=== PATIENT | female | born 1985 | race Caucasian/White ===

== ENCOUNTER 2017-02-07 15:29 | Inpatient (IN) | payer OTHER ==
--- NOTE | ~2017-02-07 | PN ---
Unit #: [id number] #: [id number] Patient: DARRYL GARCIA [id number] [facility] [address] [place] [address] [id number] MR#: [id number] NAME: DARRYL GARCIA. ROOM: [facility] Age: 31 Sex: F Admission Date: 02/07/2017 : 1985 Attending Physician: Anjelica Peck M.D. Admitting Physician: Anjelica Peck M.D. Primary Care Physician: Primary Care Physician Margarita RANGEL PROGRESS NOTES DATE 02/11/2017 DISCUSSION Ms. Garcia is a 31-year-old white female with substance abuse and mood disorder who was seen today and chart was reviewed and case was discussed with the staff. She has been anxious, withdrawn and rather seclusive to herself and has been showing impulsivity and irritability with poor insight and judgement, poor motivation towards treatment. MENTAL STATUS EXAMINATION Young white female who was casually dressed with fair personal hygiene, appears to be in no acute distress or discomfort. She was awake and alert with impaired attention and concentration. Her mood was anxious with congruent affect. Her speech was slow (2) . Her thought processes were disorganized with some looseness of associations and flight of ideas. Her insight and judgement remains significantly impaired. TREATMENT PLAN 1. We will continue her on her current medications and treatment protocol. We will monitor her response to the medication. We will encourage her to show a better compliance to treatment and recommendation. 2. We will continue to follow up. Dictated by... Naheed Fernandez/zoila TD: 02/12/2017 03:53 JOB #: [id number] Unit #: [id number] #: [id number] Patient: DARRYL GARCIA PROGRESS NOTES Page 1 of 1 X Anjelica Peck MD PROGRESS NOTE
--- NOTE | ~2017-02-07 | DS ---
Unit #: [id number] #: [id number] Patient: [facility] [id number] [facility] [address] [place] [address] [id number] MR#: [id number] NAME: DARRYL GARCIA. ROOM: [facility] Age: 31 Sex: F Admission Date: 02/07/2017 : 1985 Discharge Date: 02/13/2017 Attending Physician: Anjelica Peck M.D. Primary Care Physician: Primary Care Physician No DISCHARGE SUMMARY IDENTIFYING DATA Ms. Garcia is a 31-year-old single white female, who is a resident of [place], [place], and was self-referred to the hospital on a voluntary basis. DISCHARGE DIAGNOSES Psychiatric: Opioid dependence, moderate and acute withdrawals; opioid-induced mood disorder. Medical: None. Stressors: Moderate psychosocial stressors. HISTORY OF PRESENT ILLNESS Please see initial psychiatric evaluation for details. PAST PSYCHIATRIC HISTORY Please see initial psychiatric evaluation for details. PAST MEDICAL HISTORY Please see initial psychiatric evaluation for details. HOSPITAL COURSE The patient was admitted to the adult chemical dependency unit at [facility] and was oriented to the hospital. Routine p.r.n. medications were initiated, and was seemed to be doing fairly well. She was taking the medications regularly, was tolerating them fairly well and was able to show a decent therapeutic response and was willing to continue treatment on an outpatient basis. DISCHARGE MEDICATIONS None. DISCHARGE CONDITION Stable. PROGNOSIS Fair. Dictated by... Naheed Fernandez/philipl TD: 02/13/2017 06:50 Unit #: [id number] #: [id number] Patient: DARRYL GARCIA JOB #: [id number] DISCHARGE SUMMARY Page 1 of 1 X Anjelica Peck MD X DISCHARGE SUMMARY
--- NOTE | ~2017-02-07 | PA ---
Unit #: [id number] #: [id number] Patient: DARRYL GARCIA [id number] [facility] [address] [place] [address] [id number] I MR#: [id number] NAME: DARRYL GARCIA ROOM: P202 Age: 31 Sex: F Admission Date: 02/07/2017 : 1985 Date of Assessment: 02/08/2017 Attending Physician: Anjelica Peck M.D. Admitting Physician: Anjelica Peck M.D. Primary Care Physician: Primary Care Physician No PSYCHIATRIC ASSESSMENT DATE OF SERVICE 02/08/2017. IDENTIFYING DATA Ms. Garcia is a 31-year-old, single, white female, who is a resident of [place], [place], and was self-referred to the hospital on a voluntary basis. CHIEF COMPLAINT "I need medical detox." HISTORY OF PRESENT ILLNESS Ms. Garcia is a 31-year-old white female, who was brought to the hospital stating that she needs detox and "I've also been feeling really low lately." She reports that she is homeless and has been staying with her brother, but his landlord found out and made her leave and the patient has not seen her children and she has lost friends over the last few years and reports increasing depression, anxiety, multiple psychosocial stressors, having no income, financial stressors and describing herself to be homeless. Reports that she has had significant consequences because of her addiction and reports increasing depression with feelings of hopelessness and helplessness, and suicidal ideation and does report history of suicide attempt in the past, and as such, was seen to be danger to self and recommendation for inpatient level of care for safety and stabilization was made. SUBSTANCE ABUSE HISTORY The patient has extensive history of substance abuse and dependence including alcohol, cannabis, cocaine, opioids, benzodiazepines, and currently she reports heroin to be her drug of choice. She reports that she has been using 1.5 g of IV heroin on a daily basis. PAST PSYCHIATRIC HISTORY The patient has had a history of multiple inpatient chemical dependency treatments as she has been to [facility] 4 times and [facility] 3 times and has been to [facility] 6 times and has a history of poor compliance with treatment recommendation and poor outcomes and poor prognosis as she has not been able to achieve any long-term sobriety. PAST MEDICAL HISTORY No acute or chronic medical illnesses. ALLERGIES Unit #: [id number] #: [id number] Patient: DARRYL GRACIA No known medication allergies. CURRENT MEDICATIONS None. PERSONAL AND SOCIAL HISTORY A 31-year-old white female, who reports that she is single, unemployed, and essentially homeless and has poor social support system. MENTAL STATUS EXAMINATION Young white female, who was casually dressed with fair personal hygiene, appears to be in no acute distress or discomfort. She was awake and alert on interaction with intact orientation to time, place, and person. Her mood was anxious and depressed with a congruent affect. Her speech was slow and goal directed. She reports having suicidal ideations, but denies any homicidal ideations, and also denies any auditory or visual hallucinations. Her insight and judgment remain significantly impaired. DIAGNOSTIC IMPRESSION Psychiatric: Opioid dependence, moderate and acute withdrawals; opioid-induced mood disorder. Medical: None. Stressors: Moderate psychosocial stressors. TREATMENT PLAN 1. The patient has presented with a history of substance abuse and mood disorder, and has been decompensating and will need inpatient hospitalization for detoxification, safety, and stabilization. We will start her on detox protocol. We will monitor for any worsening withdrawal symptoms. 2. Supportive therapy was provided to the patient. 3. Safe, structured, and nourishing environment will be provided. ESTIMATED LENGTH OF STAY 5 to 7 days. ABILITY TO HELP SELF Limited. WILLINGNESS TO HELP SELF The patient appears to be willing to help self. STRENGTHS 1. Communicative. 2. Cooperative. PROBLEMS 1. Chronic dysphoric symptoms. 2. Chronic chemical dependency. 3. Poor social support system. DISCHARGE CRITERIA This will be contingent upon the patient's ability to go through detox without having any significant withdrawal symptoms as well as her ability to stay safe to herself, particularly after discharge from the hospital. Unit #: [id number] #: [id number] Patient: DARRYL GARCIA Dictated by... Naheed Fernandez/desmond TD: 02/08/2017 07:16 JOB #: [id number] PSYCHIATRIC ASSESSMENT Page 1 of 1 X Anjelica Peck MD PSYCHIATRIC ASSESSMENT
--- NOTE | ~2017-02-07 | PN ---
Unit #: [id number] #: [id number] Patient: DARRYL GARCIA [id number] [facility] [address] [place] [address] [id number] I MR#: [id number] NAME: DARRYL GARCIA. ROOM: P202 Age: 31 Sex: F Admission Date: 02/07/2017 : 1985 Attending Physician: Anjelica Peck M.D. Admitting Physician: Anjelica Peck M.D. Primary Care Physician: Primary Care Physician Margarita RANGEL PROGRESS NOTES DATE 02/10/2017 DISCUSSION Ms. Garcia is a 31-year-old white female with substance abuse and mood disorder who was seen today and chart was reviewed and case was discussed with the staff. She was seen to be anxious, withdrawn, depressed and rather seclusive to herself. Meanwhile, she has been cooperative with treatment recommendations and has been taking medications and tolerating them fairly well with no reported side effects. MENTAL STATUS EXAMINATION Young white female who was casually dressed with fair personal hygiene and appears to be in no acute distress or discomfort. She was awake and alert on interaction with intact orientation. Her mood was anxious with congruent affect. She denies any suicidal or homicidal ideation. Her insight and judgement remains slightly impaired. TREATMENT PLAN 1. Will continue on current medications and treatment protocol. Will monitor her response to the medications and make further adjustments as needed. 2. Will continue to follow up. Dictated by... Anjelica Peck M.D. IAA/sherrie TD: 02/10/2017 17:34 JOB #: [id number] Unit #: [id number] #: [id number] Patient: DARRYL GARCIA PROGRESS NOTES Page 1 of 1 X Anjelica Peck MD PROGRESS NOTE
--- NOTE | ~2017-02-07 | HP ---
Unit #: [id number] #: [id number] Patient: JENNY GARCIA [id number] [place] [address] [id number] I MR#: [id number] NAME: JENNY GARCIA. ROOM: [facility] Age: 31 Sex: F Admission Date: 02/07/2017 : 1985 Attending Physician: Anjelica Peck M.D. Admitting Physician: Anjelica Peck M.D. Primary Care Physician: Primary Care Physician No HISTORY AND PHYSICAL HISTORY OF PRESENT ILLNESS Jenny is a 31 year old admitted to [address] [place] [address] because of her continued drug use. PAST MEDICAL HISTORY 1. Long history of polysubstance abuse to include IV heroin. 2. Hepatitis C. 3. Patient does NOT have a seizure disorder. PAST SURGICAL HISTORY 1. Low back surgery. 2. Cranial surgery at 18. 3. Left wrist. 4. T and A. 5. Bilateral tear duct. ALLERGIES No known drug allergies. SOCIAL HISTORY Smokes 1 pack per day. Drinks alcohol on occasion. Has a long history of opioid abuse to include IV heroin. FAMILY HISTORY Medically noncontributory. REVIEW OF SYSTEMS CONSTITUTIONAL: No fever or chills. HEENT: Denies any sore throat, ear pain or runny nose. CARDIOVASCULAR: Denies chest pain, irregular heart rhythm or palpitations. CHEST: Denies shortness of breath or cough. No hemoptysis. GASTROINTESTINAL: Denies nausea, vomiting, diarrhea or chronic constipation. ENDOCRINE: Denies history of increased thirst or urination. No recent significant weight loss or gain. GENITOURINARY: Denies dysuria, frequency, or hematuria. SKIN: Denies any rashes. HEMATOLOGIC: Denies history of increased bleeding or bruising. MUSCULOSKELETAL: Denies any hot, swollen joints. No generalized muscle pain. NEUROLOGIC: Denies problems with vision or speech. No frequent, severe headaches. No numbness, tingling or weakness in any extremities. Denies loss of bladder or bowel control. Unit #: [id number] #: [id number] Patient: JENNY GARCIA CURRENT MEDICATIONS Detox protocol. PHYSICAL EXAMINATION GENERAL: Alert, well-nourished, in no apparent distress. VITAL SIGNS: Blood pressure 110/72, heart rate 80, respirations 16, temperature 98.6. WEIGHT: 119. HEIGHT: 4 feet 10 inches. SKIN: Warm and dry without rash or lesion. HEENT: Normocephalic. TMs not viewed. Oral and nasal passages clear. Conjunctivae clear. PERRLA. EOMs intact. NECK: Supple without lymphadenopathy or thyromegaly. HEART: Regular rate and rhythm without murmur. LUNGS: Clear. ABDOMEN: Soft, nontender. : Not done. EXTREMITIES: No evidence of cyanosis, clubbing or edema. Moves all without focal deficit. NEUROLOGICAL: Grossly within normal limits. Cranial Nerves: II: Visual grijalva are intact. III, IV AND : Extraocular movements are intact. Pupils are equal, round and reactive to light. V: Facial sensation is grossly normal. VII: Facial movements and expression are normal. VIII: Auditory acuity grossly intact. IX, X: Uvula is midline. Phonation is normal. XI: Patient shrugs shoulders and turns head normally. XII: Tongue protrudes in the midline. Sensory and Motor Function: Sensory and motor sensation is grossly normal. Motor: moves all extremities well. Coordination: Gait is normal. Deep Tendon Reflexes: Intact. IMPRESSION Psychiatric admission. RECOMMENDATIONS PSYCHIATRIC: Per psychiatrist. MEDICAL: See no contraindication to participate in facility's activities. MEDICAL PROGNOSIS Good. MEDICAL CONDITION Stable. Dictated by... Anastasiya Holden PLindaALinda-Loretta. for Naheed Hamilton/sherrie TD: 02/08/2017 17:44 JOB #: [id number] Unit #: [id number] #: [id number] Patient: JENNY GARCIA HISTORY AND PHYSICAL Page 1 of 1 X Anastasiya Holden HISTORY AND PHYSICAL
--- NOTE | ~2017-02-07 | PN ---
Unit #: [id number] #: [id number] Patient: DARRYL GARCIA [id number] [facility] [address] [place] [address] [id number] MR#: [id number] NAME: DARRYL GARCIA. ROOM: [facility] Age: 31 Sex: F Admission Date: 02/07/2017 : 1985 Attending Physician: Anjelica Peck M.D. Admitting Physician: Anjelica Peck M.D. Primary Care Physician: Primary Care Physician Margarita KOHLI NOTES DATE February 09, 2017 DISCUSSION Ms. Garcia is a 31-year-old white female, who was seen today and chart was reviewed and the case was discussed with the staff. The patient has been anxious and had a very rough time last night as staff called me last night stating that the patient appears to be that she was high and manic, and jumping around, and making postures, and everyone was concerned that she probably had smuggled some drugs and as such a lot of precautions were elevated. The patient appears to be calmer this morning and denies bringing any drugs with her, but she remains a poor historian. MENTAL STATUS EXAMINATION Young white female, who was casually dressed with fair personal hygiene and appears to be in no acute distress or discomfort. She was awake and alert with intact orientation. Her mood was anxious with a congruent affect. The patient denies any suicidal or homicidal ideations. Her insight and judgment remain significantly impaired. TREATMENT PLAN 1. We will continue her on her current medications and treatment protocol, and will monitor her response to the medications, and make further adjustments as needed. 2. We will continue to followup. Dictated by... Naheed Fernandez/elaine TD: 02/09/2017 09:58 JOB #: [id number] Unit #: [id number] #: [id number] Patient: DARRYL GARCIA [facility] KOHLI NOTES Page 1 of 1 X Anjelica Peck MD PROGRESS NOTE
--- NOTE | ~2017-02-07 | PN ---
Unit #: [id number] #: [id number] Patient: DARRYL GARCIA [id number] [facility] [address] [place] [address] [id number] MR#: [id number] NAME: DARRYL GARCIA ROOM: P202 Age: 31 Sex: F Admission Date: 02/07/2017 : 1985 Attending Physician: Anjelica Peck M.D. Admitting Physician: Anjelica Peck M.D. Primary Care Physician: Primary Care Physician Margarita KOHLI NOTES DATE OF SERVICE 02/12/2017 DISCUSSION Ms. Garcia is a 31-year-old white female who was seen today. Chart was reviewed and case was discussed with the staff. She has been anxious though has been doing fairly well and has been showing improvement in her detox symptoms. She has been cooperative with treatment recommendations and has been complaining of poor sleep at night. MENTAL STATUS EXAMINATION Young white female who is casually dressed with fair personal hygiene, appears to be in no acute distress or discomfort. She was awake and alert with intact orientation. Her mood is anxious with congruent affect. She denies any suicidal or homicidal ideations. Her insight and judgment remain slightly impaired. TREATMENT PLAN 1. We will continue her on her current medications and treatment protocol. We will monitor her response to the medications and make further adjustments as needed. 2. We will continue to follow up. Dictated by... Naheed Fernandez/liliag TD: 02/13/2017 12:35 JOB #: [id number] [facility] PROGRESS NOTES Page 1 of 1 X Anjelica Peck MD PROGRESS NOTE
[~2017-02-07 15:29] MED LIST: ABILIFY PO; BCP; CYMBALTA PO; DEPAKOTE PO; EC-NAPROSYN500 MG PO; FLEXERIL PO; FLEXERIL10 MG PO; IBUPROFEN800 MG PO; IMITREX PO; KLONOPIN PO; LORTAB 10/500 T1 TAB; LORTAB 5/500 TA1 TA1 PO; NAPROSYN375 MG PO; NEURONTIN PO; ORTHO TRI-7 DAYSX 3 PO; PHENERGAN25 MG PO; PREDNISONE PO; TYLOX 5/500 CAP1 CAP PO; VICODIN 5/500 T1 TAB PO; VOLTAREN75 MG PO; WALGREENS PHARMACY
[2017-02-08 09:48] LABS: BASOPHIL# 0.1 X10e3 (0-0.3); BASOPHIL% 0.7 % (0-2.5); EOSINOPHIL# 0.1 X10e3 (0-0.7); EOSINOPHIL% 1.7 % (0.0-7.0); HEMATOCRIT 36.7 % (35.0-45.0); HEMOGLOBIN 11.9 gm/dL (12.0-16.0); LYMPHOCYTE# 3.6 X10e3 (1.0-3.5); LYMPHOCYTE% 47.8 % (17.0-45.0); MEAN CELL VOLUME 85.7 FL (83-96); MEAN CORPUSCULAR HEMOGLOBIN 27.7 PG (28-34); MEAN CORPUSCULAR HGB CONC 32.4 g/dL (30-36); MEAN PLATELET VOLUME 9.9 FL (6.5-11.5); MONOCYTE# 0.7 X10e3 (0-1.0); MONOCYTE% 8.7 % (3.0-12.0); NEUTROPHIL# 3.1 X10e3 (1.5-7.1); NEUTROPHIL% 41.1 % (40-75); PLATELET COUNT 276 X10e3 (140-420); RED BLOOD COUNT 4.28 X10e (3.90-5.30); RED CELL DISTRIBUTION WIDTH 14.3 % (11.0-15.5); WHITE BLOOD COUNT 7.6 X10e3 (4.0-10.5)
[2017-02-08 09:49] LABS: URINE APPEARANCE CLEAR; URINE BILIRUBIN NEG (NEG); URINE BLOOD NEG (NEG); URINE COLOR YELLOW; URINE GLUCOSE NEG (NEG); URINE KETONE NEG (NEG); URINE LEUKOCYTE ESTERASE NEG (NEG); URINE NITRATE NEG (NEG); URINE PROTEIN NEG (NEG); URINE UROBILINOGEN 0.2 MG/DL (NEG)
[2017-02-08 09:53] LABS: DIFF IND NO
[2017-02-08 10:08] LABS: ALBUMIN SERUM 3.2 g/dL (3.5-5.0); BILIRUBIN,TOTAL 0.2 mg/dL (0.2-2.0); CALCIUM SERUM 8.8 mg/dL (8.4-10.2); CREATININE SERUM 0.7 mg/dL (0.6-1.4); GLOM FILT RATE Estimated 117.1 mL/min (>60); POTASSIUM 4.4 mmol/L (3.5-5.1); PROTEIN TOTAL SERUM 6.5 g/dL (6.0-8.3)
[2017-02-08 10:22] LABS: AMPHETAMINE POS (NEG); BARBITURATES NEG (NEG); BENZODIAZEPINES NEG (NEG); COCAINE NEG (NEG); MARIJUANA NEG (NEG); OPIATES POS (NEG); TRICYCLIC ANTIDEPRESSANTS NEG (NEG); U METHADONE NEG (NEG)
[2017-02-09 02:29] LABS: AMPHETAMINE POS (NEG); BARBITURATES NEG (NEG); BENZODIAZEPINES POS (NEG); COCAINE NEG (NEG); MARIJUANA NEG (NEG); OPIATES POS (NEG); TRICYCLIC ANTIDEPRESSANTS NEG (NEG); U METHADONE NEG (NEG)
== END 2017-02-13 09:30 | disposition home or self-care (01) | DRG 897 ==
LOC: P2S 18:22
PROVIDERS: Psychiatry & Neurology Psychiatry
PROC: HZ2ZZZZ Detoxification Services for Substance Abuse Treatment (ICD-10-PCS; principal; 2017-02-07)
DX: F11.23 Opioid dependence with withdrawal (principal); F11.24 Opioid dependence with opioid-induced mood disorder; B19.20 Unspecified viral hepatitis C without hepatic coma; Z56.0 Unemployment, unspecified; Z59.0 Homelessness; F17.210 Nicotine dependence, cigarettes, uncomplicated
CPT/HCPCS: 80053; 80307; 81003; 85025; 86592

== ENCOUNTER 2017-02-23 18:29 | Emergency (ER) | payer OTHER ==
[~2017-02-23] VITALS: Ht 147.3 cm; Wt 54.4 kg
== END 2017-03-08 07:08 | disposition left against medical advice (07) ==
LOC: CED 18:29 → CFTX 18:29 → CED 19:22
DX: Z53.21 Procedure and treatment not carried out due to patient leaving prior to being seen by health care provider (principal)

== ENCOUNTER 2017-02-24 10:18 | Inpatient (IN) | payer OTHER ==
[~2017-02-24] VITALS: Ht 147.3 cm; Wt 54.4 kg
--- NOTE | ~2017-02-24 | DS ---
Unit #: [id number] #: [id number] Patient: [facility] [id number] [facility] [address] [place] [address] [id number] I MR#: [id number] NAME: DARRYL GARCIA. ROOM: [facility] Age: 31 Sex: F Admission Date: 02/24/2017 : 1985 Discharge Date: 02/26/2017 Attending Physician: Anjelica Peck M.D. Primary Care Physician: Primary Care Physician No DISCHARGE SUMMARY IDENTIFICATION DATA Ms. Garcia is a 31-year-old white female who participated in the program. DISCHARGE DIAGNOSES PSYCHIATRIC: Opioid dependence, moderate, in acute withdrawal. Mood disorder. MEDICAL: None. STRESSORS: Moderate psychosocial stressors. HISTORY OF PRESENT ILLNESS Same as in initial psychiatric evaluation. PAST PSYCHIATRIC HISTORY Same as in initial psychiatric evaluation. PAST MEDICAL HISTORY Same as in initial psychiatric evaluation. HOSPITAL COURSE The patient was admitted to the adult chemical dependence unit at [facility] and was oriented to the hospital environment. Routine p.r.n. medications were initiated, and she was started on the detox protocol. However, she found out that she is and was wanting to go to [facility] which is a more specialized program for females, and as such it was decided that she will be discharged from our care and will be recommended to go to chemical dependency treatment program at [facility]. CONDITION AT DISCHARGE Stable. PROGNOSIS Guarded. Dictated by... Anjelica Peck M.D. IAA/bzg TD: 03/22/2017 10:13 JOB #: [id number] Unit #: [id number] #: [id number] Patient: DARRYL GARCIA DISCHARGE SUMMARY Page 1 of 1 X Anjelica Peck MD DISCHARGE SUMMARY
--- NOTE | ~2017-02-24 | HP ---
Unit #: [id number] #: [id number] Patient: JENNY GARCIA [id number] [facility] [address] [place] [address] [id number] I MR#: [id number] NAME: JENNY GARCIA ROOM: P20 Age: 31 Sex: F Admission Date: 02/24/2017 : 1985 Attending Physician: Anjelica Peck M.D. Admitting Physician: Anjelica Peck M.D. Primary Care Physician: Primary Care Physician No HISTORY AND PHYSICAL Jenny is a 31-year-old female admitted on 02/24/[address] [place] [address] for detox from heroin. She had previously been admitted on 02/07/2017 for the same. I reviewed the history and physical from that admission and there are no changes. Dictated by..Marlene Rodriguez/sherrie TD: 02/24/2017 22:01 JOB #: [id number] HISTORY AND PHYSICAL Page 1 of 1 X FRANKLYN CHANDLER APRN HISTORY AND PHYSICAL
--- NOTE | ~2017-02-24 | PN ---
Unit #: [id number] #: [id number] Patient: DARRYL GARCIA [id number] [facility] [address] [place] [address] [id number] I MR#: [id number] NAME: DARRYL GARCIA. ROOM: P207 Age: 31 Sex: F Admission Date: 02/24/2017 : 1985 Attending Physician: Anjelica Peck M.D. Admitting Physician: Anjelica Peck M.D. Primary Care Physician: Primary Care Physician Margarita RANGEL PROGRESS NOTES DATE February 25, 2017 DISCUSSION Ms. Garcia is a 31-year-old white female, with substance abuse and mood disorder, who was seen today and chart was reviewed and the case was discussed with the staff. The patient has been doing fairly well with no agitation, irritability, and has been cooperative with the treatment recommendations and she has been taking the medications and tolerating them fairly well with no reported side effects. MENTAL STATUS EXAMINATION Young white female, who was casually dressed with fair personal hygiene and appears to be in some distress and discomfort. She was awake and alert with impaired attention and concentration. Her mood was anxious with a congruent affect. The patient denies any suicidal or homicidal ideations. Her insight and judgment remain slightly impaired. TREATMENT PLAN 1. We will continue her on her current medications and treatment protocol, and will monitor her response to the medications, and make further adjustments as needed. 2. We will continue to followup. Dictated by... Naheed Fernandez/elaine TD: 02/27/2017 10:57 JOB #: [id number] Unit #: [id number] #: [id number] Patient: DARRYL GARCIA PROGRESS NOTES Page 1 of 1 X Anjelica Peck MD PROGRESS NOTE
--- NOTE | ~2017-02-24 | PA ---
Unit #: [id number] #: [id number] Patient: DARRYL GARCIA [id number] [place] [address] [id number] Nancy MR#: [id number] NAME: DARRYL GARCIA ROOM: P207 Age: 31 Sex: F Admission Date: 02/24/2017 : 1985 Date of Assessment: Attending Physician: Anjelica Peck M.D. Admitting Physician: Anjelica Peck M.D. Primary Care Physician: Primary Care Physician No PSYCHIATRIC ASSESSMENT DATE OF SERVICE 02/24/2017. IDENTIFYING DATA Ms. Garcia is a 31-year-old single white female, who is a resident of [place], [place], and was recently discharged from my care and was self-referred to the hospital on a voluntary basis. CHIEF COMPLAINT "I'm here for detox. I've been using heroin." HISTORY OF PRESENT ILLNESS Ms. Garcia is a 31-year-old white female, who was recently active under my care a couple of weeks ago and was medically detoxed and was referred to come here to [facility] for chemical dependency rehab, and she according to her own reports stated that she went there and she found out that she is and therefore they could not keep her and she was discharged and she was staying with her brother who is a drug addict and was using drugs, and therefore, she stated that she started using drugs and now she states "I'm here for detox. I used about 1 to 2 g of heroin a day IV and about 6 mg of Xanax a day and I have been using heroin for about 7 years. I was here about 2 weeks ago to detox and I was still detoxing when they let me go and I tried to go to [facility] and they would not let me in and I have been using since then, my last use was yesterday of both drugs. I'm starting to have withdrawal symptoms. I'm nauseated. My body hurts. I'm irritable and anxious and I cannot sleep and I have a lot of depression and anxiety and I have a lot of anger and I isolate myself from people. I have these panic attacks that happens a lot and I'm not taking any medication at this time." She does report increasing depression, anxiety, irritability, restlessness, feelings of hopelessness and helplessness, but denies any homicidal ideations, though she states that she just does not want to be here "if I don't get any help, I think I would just walk in front of a car." SUBSTANCE ABUSE HISTORY The patient reports extensive history of substance abuse and dependence. Currently, opioids and benzodiazepines have been her drug of choice as she has been using IV heroin and has been taking several mg of Xanax a day. PAST PSYCHIATRIC HISTORY The patient has had a history of chemical dependency treatment at [facility], and review of the medical records indicate currently she is not active in any treatment program, is not seeing a psychiatrist, and is not Unit #: [id number] #: [id number] Patient: DARRYL GARCIA taking any psychotropic medications. PAST MEDICAL HISTORY No acute or chronic medical illnesses. ALLERGIES No known medication allergies. CURRENT MEDICATIONS None. PERSONAL AND SOCIAL HISTORY A 31-year-old white female, who reports that she is single, unemployed, and essentially homeless and has poor social support system. MENTAL STATUS EXAMINATION Young white female, who was casually dressed with fair personal hygiene, appears to be in no acute distress or discomfort. She was awake and alert with impaired attention and concentration. Her mood was anxious and depressed with a congruent affect. Her speech was slow and restricted in content. Her thought processes were disorganized with some looseness of associations and paranoid ideations and suicidal ideations. Her insight and judgment remain significantly impaired. DIAGNOSTIC IMPRESSION Psychiatric: Major depressive disorder, recurrent, moderate, without psychotic features; opioid dependence, moderate, in acute withdrawals; and benzodiazepine dependence, moderate, in acute withdrawals. Medical: None. Stressors: Moderate psychosocial stressors. TREATMENT PLAN 1. The patient has presented with a history of substance abuse and mood disorder and has been decompensating and will need inpatient hospitalization for detoxification, safety, and stabilization. We will start her back on her home medications, and we will adjust the medications and monitor response. 2. Supportive therapy was provided to the patient. 3. Safe, structured, and nourishing environment will be provided. ESTIMATED LENGTH OF STAY 4 to 5 days. ABILITY TO HELP SELF Limited. WILLINGNESS TO HELP SELF The patient appears to be willing to help self. STRENGTHS 1. Communicative. 2. Cooperative. PROBLEMS 1. Chronic dysphoric symptoms. 2. Chronic chemical dependency. 3. Poor social support system. DISCHARGE CRITERIA Unit #: [id number] #: [id number] Patient: DARRYL GARCIA This will be contingent upon the patient's ability to go through detox without having any significant withdrawal symptoms as well as her ability to stay safe to herself, particularly after discharge from the hospital. Dictated by... Naheed Fernandez/desmond TD: 02/25/2017 18:47 JOB #: [id number] PSYCHIATRIC ASSESSMENT Page 1 of 1 X Anjelica Peck MD X PSYCHIATRIC ASSESSMENT
[2017-02-25 13:33] LABS: BASOPHIL# 0.1 X10e3 (0-0.3); BASOPHIL% 1.1 % (0-2.5); EOSINOPHIL% 0.2 % (0.0-7.0); HEMATOCRIT 38.9 % (35.0-45.0); HEMOGLOBIN 12.4 gm/dL (12.0-16.0); LYMPHOCYTE# 2.9 X10e3 (1.0-3.5); LYMPHOCYTE% 28.7 % (17.0-45.0); MEAN CELL VOLUME 86.2 FL (83-96); MEAN CORPUSCULAR HEMOGLOBIN 27.4 PG (28-34); MEAN CORPUSCULAR HGB CONC 31.8 g/dL (30-36); MEAN PLATELET VOLUME 10.5 FL (6.5-11.5); MONOCYTE# 0.8 X10e3 (0-1.0); NEUTROPHIL# 6.3 X10e3 (1.5-7.1); PLATELET COUNT 261 X10e3 (140-420); RED BLOOD COUNT 4.51 X10e (3.90-5.30); RED CELL DISTRIBUTION WIDTH 14.8 % (11.0-15.5); WHITE BLOOD COUNT 10.2 X10e3 (4.0-10.5)
[2017-02-25 13:45] LABS: ALBUMIN SERUM 3.6 g/dL (3.5-5.0); BILIRUBIN,TOTAL 0.3 mg/dL (0.2-2.0); CALCIUM SERUM 9.1 mg/dL (8.4-10.2); CREATININE SERUM 0.5 mg/dL (0.6-1.4); GLOM FILT RATE Estimated 130.8 mL/min (>60); POTASSIUM 4.6 mmol/L (3.5-5.1); PROTEIN TOTAL SERUM 7.2 g/dL (6.0-8.3)
[2017-02-25 13:55] LABS: DIFF IND NO
== END 2017-02-26 11:45 | disposition left against medical advice (07) | DRG 885 ==
LOC: P2S 10:18
PROVIDERS: Psychiatry & Neurology Psychiatry
PROC: HZ2ZZZZ Detoxification Services for Substance Abuse Treatment (ICD-10-PCS; principal; 2017-02-24)
DX: F33.1 Major depressive disorder, recurrent, moderate (principal); F11.23 Opioid dependence with withdrawal; F13.239 Sedative, hypnotic or anxiolytic dependence with withdrawal, unspecified
CPT/HCPCS: 80053; 84703; 85025; 86592

== ENCOUNTER 2017-04-05 19:51 | Emergency (ER) | payer OTHER ==
[2017-04-05 21:11] LABS: URINE SOURCE CLEAN CATCH
[2017-04-05 21:31] LABS: URINE APPEARANCE CLEAR; URINE BILIRUBIN NEG (NEG); URINE BLOOD NEG (NEG); URINE COLOR YELLOW; URINE GLUCOSE NEG (NEG); URINE KETONE NEG (NEG); URINE LEUKOCYTE ESTERASE NEG (NEG); URINE NITRATE NEG (NEG); URINE PH 5.5 (5-8); URINE PROTEIN NEG (NEG); URINE SPECIFIC GRAVITY 1.027 (1.003-1.035)
[2017-04-05 21:47] LABS: URINE SQUAMOUS EPITHELIAL CELL OCCAS /[HPF]
[2017-04-05 21:52] LABS: CULTURE INDICATED? NO
== END 2017-04-05 22:23 | disposition home or self-care (01) ==
LOC: CED 19:51 → CFTX 20:05
PROVIDERS: Nurse Practitioner
DX: Z32.01 Encounter for pregnancy test, result positive (principal); F41.9 Anxiety disorder, unspecified; F32.9 Major depressive disorder, single episode, unspecified; O99.331 Smoking (tobacco) complicating pregnancy, first trimester
CPT/HCPCS: 81003; 84703; 99282